=== PATIENT | male | born 1940 | race Caucasian/White ===

== ENCOUNTER 2019-08-23 07:29 | Day surgery (SDC) | payer MEDICARE ==
--- NOTE | 2019-08-22 16:00 | RAD REPORT ---
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 COMPARISON: Chest Single View dated 07/06/2017 FINDINGS: The lungs are clear. The heart is mildly enlarged in size. No displaced fractures. Thoraci c spondylosis noted, mild.
[2019-08-22 16:52] LABS: Absolute Lymphocytes (CBC) 1.3 K/uL (0.7-4.9); Basophils % 0.8 % (0-1.3); Hematocrit 35.4 % (39.6-49.0); Lymphocytes % 19.6 % (15.3-44.8); MPV 8.5 fL (7.6-11.3); RBC Red Blood Cell Count 3.86 M/uL (4.33-5.43)
[2019-08-22 16:53] LABS: Protime INR 1.03
[2019-08-22 16:57] LABS: Potassium 5.1 mmol/L (3.5-5.1)
[2019-08-23] MEDS ORDERED: HEPA 1000U/500MLS 1,000 UNIT/500 ML BAG IV ONE (07:59)
[2019-08-23] MEDS ORDERED: NA CHLORIDE 0.9% 500 ML ONE (08:03)
[2019-08-23] MEDS ORDERED: NA CHLORIDE 0.9% 50 ML ONE (08:38)
[2019-08-23] MEDS ORDERED: ACETYLCYST 20% 4 ML VIAL IH ONE (08:38)
[2019-08-23] MEDS ORDERED: ATROPINE SULF 1 MG/10 ML SYR IV ONE (08:38)
[2019-08-23] MEDS ORDERED: MIDAZOLAM HCL 2 MG/2 ML INJ ONE ×2 (08:38→08:44)
[2019-08-23] MEDS ORDERED: FENTANYL CITR 100 MCG/2 ML ONE (08:38)
[2019-08-23] MEDS ORDERED: PRASUGREL (EFFIENT) 10 MG TAB ONE (09:43)
[2019-08-23] MEDS ORDERED: ASPIRIN 325 MG TAB ONE (09:43)
[2019-08-23] MEDS ORDERED: ZOLPIDEM TARTRATE 5 MG TABLET PO PRN (10:28)
[2019-08-23] MEDS ORDERED: MORPHINE 4 MG/ML SYR IV PRN (10:29)
[2019-08-23] MEDS ORDERED: NITROGLYCERIN 0.4 MG/TAB SL PRN (11:00)
[2019-08-23] MEDS ORDERED: ACETAMINOPHEN 325 MG TABLET PO PRN (11:00)
[2019-08-23] MEDS ORDERED: ACETYLCYST 20% 800 MG/4 ML VIAL PO ONE (12:00)
[2019-08-23] MEDS: NA CHLORIDE 0.9% 1,000 ML IV SCH (12:55)
[2019-08-23 13:16] VITALS: BMI 34.3
[2019-08-23] MEDS: PANTOPRAZOLE 40MG TABLET PO SCH (16:25)
[2019-08-23] MEDS ORDERED: GLUCAGON 1 MG/VIAL IM PRN (17:49)
[2019-08-23] MEDS ORDERED: D50W 25 GM/50 ML SYRINGE/VIAL IV PRN (17:49)
[2019-08-23] MEDS: INSULIN -REGULAR HUMAN 50 UNIT/0.5 ML ML SQ SCH ×2 (18:27→20:07)
--- NOTE | 2019-08-23 20:10 | OP ---
Date of Procedure: 08/23/2019 Surgeon: Manny Li MD [employer]: Katy Lindsay. The patient will remain in the hospital overnight. He received Angiomax. He will receive Effient an d aspirin today. Indications: Mr. Hernandez is a 79-year-old male, patient of Dr. Mateus Chadwick admitted today as an o utpatient for heart catheterization and possible intervention. Indication was abnormal stress test o n 07/14/2019 and chest pain. Description Of Procedure: The patient was prepped and draped in the routine sterile fashion. Given Versed and fentanyl for sedation. A 6-[place] sheath introduced in the right common femoral artery. Angio-Seal was used to close the case. Angiography there was normal. Shannan catheter left and righ t with coronary angiography. He was found to have an 80% mid LAD after the 1st diagonal. The diagon al was small, had an 80% ostial lesion in it. He had a normal circumflex left dominant. He had an 8 0% to 90% obtuse marginal lesion right at the ostium. RCA was small diffusely diseased and nondomina nt. I decided to do staged procedure for now. I went ahead and did a primary stent of the LAD. We used a 2.5 x 20 and a 2.5 x 12 Synergy stent overlapping to obtain 0% residual. There was 0.014 [place]oug ar wire used and XB LAD 3.5 with side hole guide that was used. There were no complications. Blood Loss: 10 mL. Postoperative Diagnosis: Coronary artery disease status post primary stent of the mid LAD, successfu l severe diagonal and obtuse marginal disease. We will treat with medical therapy for now. Anesthesia: Total conscious sedation was 45 minutes. NB/MODL Voice ID: [id number] Report ID: [id number]
[2019-08-23] MEDS ORDERED: ATORVASTATIN 80 MG TAB PO SCH (21:00)
[2019-08-24] VITALS: O2SAT 98
[2019-08-24] MEDS: NA CHLORIDE 0.9% 1,000 ML IV SCH (02:02)
[2019-08-24 04:42] LABS: Absolute Lymphocytes (CBC) 0.7 K/uL (0.7-4.9); Basophils % 0.6 % (0-1.3); Hematocrit 30.9 % (39.6-49.0); Lymphocytes % 10.5 % (15.3-44.8); MPV 7.8 fL (7.6-11.3); RBC Red Blood Cell Count 3.42 M/uL (4.33-5.43)
[2019-08-24 04:57] LABS: Potassium 4.6 mmol/L (3.5-5.1)
[2019-08-24] MEDS: INSULIN -REGULAR HUMAN 50 UNIT/0.5 ML ML SQ SCH (07:30)
[2019-08-24 08:17] VITALS: BP 151/77; TEMP 98
[2019-08-24] MEDS: PANTOPRAZOLE 40MG TABLET PO SCH (08:30)
[2019-08-24] MEDS ORDERED: CLOPIDOGREL 75 MG TABLET PO SCH (09:00)
[2019-08-24] MEDS ORDERED: ASPIRIN 81 MG CHEWABLE TABLET PO SCH (09:00)
--- NOTE | 2019-08-24 12:48 | EKG ---
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
== END 2019-08-24 11:15 | disposition home or self-care (01) ==
LOC: CCL 07:29 → 4TH 09:30 → CCL 08-24 11:15
DX: I25.10 Atherosclerotic heart disease of native coronary artery without angina pectoris (principal); I10 Essential (primary) hypertension; E78.5 Hyperlipidemia, unspecified; E11.9 Type 2 diabetes mellitus without complications; F17.210 Nicotine dependence, cigarettes, uncomplicated; E03.9 Hypothyroidism, unspecified; K21.9 Gastro-esophageal reflux disease without esophagitis; N40.0 Benign prostatic hyperplasia without lower urinary tract symptoms; N18.9 Chronic kidney disease, unspecified; Z79.82 Long term (current) use of aspirin
CPT/HCPCS: 93005; 85025 ×2; 80048 ×2; 36415 ×2; 85610; 80061; 82947 ×6; 85347; 85730; 71046; 93454; C1893; C1760; C1725; C1877; C9600; J2250 ×2; J3010; J0583; J7040; J7030 ×3

== ENCOUNTER 2024-10-08 11:51 | Emergency (ER) | payer MEDICARE, OTHER ==
--- OUTSIDE RECORDS SUMMARY | 2024-10-08 11:55 | XMS REPORT | Continuity of Care Document ---
Author Name Unknown Address [address] [facility] [address] [place] [address] Organization [facility] [place] Address [address] [facility] [address] [place] [address] Care Team Providers Care Manager Staffing Name Role Phone Char Conway Attending Clinician Unavailable Loren Diaz Attending Clinician Unavailable THONY DOMINGUEZ Attending Clinician Unavailable MD MANUELA Attending Clinician Unavail le Payers Payer Name Policy Type Policy Number Effective Date Expirati on Date Source MEDICARE-PART B 5 [id number] 2023 00:00:00 OSMANY BLAKE 5 [id number] 2022 00:00:00 AARP [facility] WELLMED 53 [id number] 2020 00:00:00 [facility] Problems Condition Name Condition Details Condition Category Status Onset Date Resolution Date Last Treatment Date Treating Clinician Comments Source Hypothyroi dism Hypothyroi dism Problem [facility] [id number] 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 Problem [facility] Anemia Anemia Problem [facility] Hyperlipid emia Hyperlipid emia, unspecifie d Problem [facility] Diabetes mellitus without complicati on Diabetes DMII without complicati ons Problem [facility] [id number] Anemia of chronic disease Problem [facility] [id number] Benign prostatic hyperplasi a, unspecifie d whether lower urinary tract symptoms present Problem [facility] [id number] Eosinophil ia Problem [facility] [id number] Thrombocyt openia Problem [facility] [id number] Chronic kidney disease, unspecifie d CKD stage Problem [facility] [id number] Abnormal ankle brachial index (SUNI) Problem [facility] Hypertensi on Hypertensi on Problem [facility] Cervicalgi a Cervicalgi a Problem [facility] Gastro-eso phageal reflux disease without esophagiti s GERD without esophagiti s Problem [facility] [id number] Peripheral edema Problem [facility] [id number] Seasonal allergic rhinitis, unspecifie d trigger Problem [facility] [id number] Paresthesi a Problem [facility] [id number] Former smoker Problem [facility] [id number] Osteopenia , unspecifie d location Problem [facility] [id number] Dysphagia, unspecifie d type Problem [facility] [id number] H/O heart artery stent Problem [facility] [id number] Coronary artery disease involving [place] coronary artery of [place] heart, angina presence unspecifie d Problem [facility] 266685249 Left atrial dilatation Problem [facility] Chronic kidney disease stage 3A Stage 3a chronic kidney disease Problem [facility] Obese Obese Problem [facility] [id number] Stage 3b chronic kidney disease Problem [facility] [id number] 107 Coronary artery disease involving [place] coronary artery of [place] heart without angina pectoris Problem [facility] [id number] +5th digit eff 04/26/20*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 Problem [facility] 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 Problem [facility] [id number] Body mass index [BMI] 32.0-32.9, adult Problem [facility] Social History Social Habit Start Date Stop Date Quantity Comments Source Gender identity Nadine elizabeth Mason - External Sexual orientation Ninfa christopher Mason - External History of tobacco use Cigarette Smoker Isha Arilea camargo - External Cigarettes smoked current (pack per day) - Reported 2023-02-23 00:00:00 2023-02-23 00:00:00 Isha Mason - External Cigarette pack-years 2023-02-23 00:00:00 2023-02-23 00:00:00 Isha Mason - External History of Social function 2023-02-23 00:00:00 2023-02-23 00:00:00 Isha Mason - External Sex Assigned At 1940 00:00:00 1940 00:00:00 Isha Mason - External Smoking Status Start Date Stop Date Source Unknown if ever smoked [facility] Ex-smoker 2023-02-23 00:00:00 2023-02-23 00:00:00 Ninfa fubrice Mason - External Medications Ordered Medication Name Filled Medication Name Start Date Stop Date Current Medication? Ordering Clinician Indication Dosage Frequency Signature (SIG) Comments Components Source Omeprazole 40 MG Omeprazole 40 MG 09-07 00:00: 00 No QD Omeprazole 40 MG Dapaglifloz in Propanediol (Farxiga) 5 MG oral Tablet 02-23 16:09: 14 Yes [id number] 1{tbl} Take 1 tablet by mouth daily Isha calvillo Lisinopril 20 MG oral Tablet 02-23 16:09: 14 Yes [id number] 20mg Take 1 tablet (20 mg total) by mouth daily 1/2 tab daily Isha calvillo Doxazosin Mesylate 8 MG oral Tablet 02-23 16:09: 14 Yes [id number] 8mg Take 1 tablet (8 mg total) by mouth 2 times daily 1/2 tab twice a day Isha calvillo Tamsulosin HCl 0.4 MG oral Capsule 02-23 16:09: 14 Yes [id number] .4mg Take 1 capsule (0.4 mg total) by mouth every night at bedtime Isha calvillo Furosemide (LASIX) 20 MG oral Tablet 02-23 16:09: 14 Yes [id number] 20mg Take 1 tablet (20 mg total) by mouth daily 3 times a day. Isha calvillo Metoprolol Tartrate (FIRST - METOPROLOL OR) 02-23 16:09: 14 Yes [id number] 1{tbl} Take 1 tablet by mouth 2 times daily 25 mg. Twice a day Isha calvillo Misc Natural Products (Turmeric Curcumin) oral Capsule 02-23 16:09: 14 Yes [id number] 1{capsu le} Take 1 capsule by mouth daily Isha calvillo Insulin Lispro Prot & Lispro (HUMALOG MIX 75/25 KWIKPEN SC) 02-23 16:09: 14 Yes [id number] 42U Inject 42 units into the skin daily (with breakfast) 32 units in evening. Isha calvillo Atorvastati n Calcium 40 MG oral Tablet 02-23 16:09: 14 Yes [id number] 40mg Take 1 tablet (40 mg total) by mouth daily 1/2 tab nightly Isha calvillo [place]-3 Fatty Acids (Fish Oil) 1000 MG oral Capsule 02-23 16:09: 14 Yes [id number] 1000mg Take 1 capsule (1,000 mg total) by mouth daily Isha calvillo Ferrous Sulfate (Iron) 325 (65 Fe) MG oral Tablet 02-23 16:09: 14 Yes [id number] 325mg Take 1 tablet (325 mg total) by mouth daily (with breakfast) 1/2 tab daily Isha calvlilo Cholecalcif tera (Vitamin D3) 50 MCG (2000 UT) oral Capsule 02-23 16:09: 14 Yes [id number] 2000U Take 1 capsule (2,000 units total) by mouth daily 3 times a week. Isha calvillo Levothyroxi ne Sodium 100 MCG oral Tablet 02-23 16:09: 14 Yes [id number] 100ug Take 1 tablet (100 mcg total) by mouth daily Isha calvillo Glucagon, rDNA, (Glucagon Emergency) 1 MG injection Kit 02-23 00:00: 00 Yes [id number] Use as directed Isha calvillo Insulin Pen Needle 31G X 5 MM does not apply [facility] [place] 00:00: 00 Yes [id number] Takes insulin SQ daily Isha calvillo Continuous Blood Gluc Sensor (FreeStyle Antonieta 2 Sensor) does not apply [facility] [place]-23 00:00: 00 Yes [id number] Changes sensor every 14 days Isha calvillo Dapaglifloz in Propanediol (Farxiga) 5 MG oral Tablet 02-23 00:00: 00 Yes [id number] 1 tablet po Q daily Isha calvillo Levothyroxi ne Sodium 100 MCG oral Tablet 02-23 00:00: 00 Yes [id number] 100ug Take 1 tablet (100 mcg total) by mouth daily Isha calvillo Kenalog (Triamcinol one) Kenalog (Triamcinol one) 2020-07 00:00: 00 No 40mg [facility] Metoprolol Tartrate 25 mg Metoprolol Tartrate 25 mg No 1{table t} BID Metoprolol Tartrate 25 mg Furosemide 20 MG Furosemide 20 MG No 1{table t} Furosemide 20 MG Atorvastati n Calcium 40 MG Atorvastati n Calcium 40 MG No 1{table t} QD Atorvastat in Calcium 40 MG Fish Oil 1000 MG Fish Oil 1000 MG No 1{capsu le} QD Fish Oil 1000 MG Lisinopril 20 mg Lisinopril 20 mg No 1{table t} QD Lisinopril 20 mg Doxazosin Mesylate 8 MG Doxazosin Mesylate 8 MG No 1{table t} QD Doxazosin Mesylate 8 MG Iron 325 (65 Fe) MG Iron 325 (65 Fe) MG No 1{table t} QD Iron 325 (65 Fe) MG Cinnamon Plus Chromium 50-500 MCG-MG Cinnamon Plus Chromium 50-500 MCG-MG No Cinnamon Plus Chromium 50-500 MCG-MG Vitamin D3 1000 UNIT Vitamin D3 1000 UNIT No 1{capsu le} Vitamin D3 1000 UNIT Levothyroxi ne Sodium 88 MCG Levothyroxi ne Sodium 88 MCG No QD Levothyrox ine Sodium 88 MCG [place] 100-33 UNT-MCG/ML [place] 100-33 UNT-MCG/ML No [place] 100-33 UNT-MCG/ML Aspirin 81 81 MG Aspirin 81 81 MG No 1{table t} QD Aspirin 81 81 MG Vital Signs Vital Name Observation Time Observation Value Comments S praful height 2024-09-07 11:00:00 67.5 [in_i] Comm [facility] weight 2024-09-07 11:00:00 213.8 [lb_av] Co [facility] temperature 2024-09-07 11:00:00 97.9 [degF] Com [facility] bmi 2024-09-07 11:00:00 32.99 kg/m2 [facility] oximetry 2024-09-07 11:00:00 98 % [facility] respiratory rate 2024-09-07 11:00:00 16 /min [facility] blood pressure systolic 2024-09-07 11:00:00 100 mm[Hg] [facility] blood pressure diastolic 2024-09-07 11:00:00 62 mm[Hg] [facility] height 2024-09-07 11:00:00 67.5 [in_i] [facility] weight 2024-09-07 11:00:00 213.8 [lb_av] [facility] temperature 2024-09-07 11:00:00 97.9 [degF] Com [facility] bmi 2024-09-07 11:00:00 32.99 kg/m2 [facility] oximetry 2024-09-07 11:00:00 98 % [facility] respiratory rate 2024-09-07 11:00:00 16 /min [facility] blood pressure systolic 2024-09-07 11:00:00 100 mm[Hg[facility] blood pressure diastolic 2024-09-07 11:00:00 62 mm[Hg] [facility] height 2024-06-07 11:40:00 67.5 [in_i] Comm [facility] weight 2024-06-07 11:40:00 210 [lb_av] Comm [facility] bmi 2024-06-07 11:40:00 32.4 kg/m2 [facility] height 2024-03-03 11:00:00 67.5 [in_i] [facility] weight 2024-03-03 11:00:00 210 [lb_av] Comm [facility] bmi 2024-03-03 11:00:00 32.4 kg/m2 [facility] height 2024-03-03 11:00:00 67.5 [in_i] [facility] weight 2024-03-03 11:00:00 210 [lb_av] [facility] bmi 2024-03-03 11:00:00 32.4 kg/m2 [facility] height 2023-12-01 10:20:00 67.5 [in_i] [facility] weight 2023-12-01 10:20:00 210.2 [lb_av] Co [facility] temperature 2023-12-01 10:20:00 97.2 [degF] Com [facility] bmi 2023-12-01 10:20:00 32.43 kg/m2 [facility] oximetry 2023-12-01 10:20:00 99 % [facility] respiratory rate 2023-12-01 10:20:00 16 /min [facility] blood pressure systolic 2023-12-01 10:20:00 128 mm[Hg] [facility] blood pressure diastolic 2023-12-01 10:20:00 64 mm[Hg] [facility] height 2023-09-02 11:20:00 67.5 [in_i] [facility] weight 2023-09-02 11:20:00 215.0 [lb_av] [facility] temperature 2023-09-02 11:20:00 98.0 [degF] Com [facility] bmi 2023-09-02 11:20:00 33.17 kg/m2 [facility] oximetry 2023-09-02 11:20:00 99 % [facility] respiratory rate 2023-09-02 11:20:00 16 /min [facility] blood pressure systolic 2023-09-02 11:20:00 115 mm[Hg] [facility] blood pressure diastolic 2023-09-02 11:20:00 53 mm[Hg] [facility] height 2023-09-02 10:20:00 67.5 [in_i] [facility] weight 2023-09-02 10:20:00 215.0 [lb_av] [facility] temperature 2023-09-02 10:20:00 98.0 [degF] Com [facility] bmi 2023-09-02 10:20:00 33.17 kg/m2 [facility] oximetry 2023-09-02 10:20:00 99 % [facility] respiratory rate 2023-09-02 10:20:00 16 /min [facility] blood pressure systolic 2023-09-02 10:20:00 115 mm[Hg] [facility] blood pressure diastolic 2023-09-02 10:20:00 53 mm[Hg] Common [facility] height 2023-05-20 10:00:00 67.5 [in_i] Comm [facility] weight 2023-05-20 10:00:00 219 [lb_av] Comm [facility] temperature 2023-05-20 10:00:00 97.4 [degF] Com [facility] bmi 2023-05-20 10:00:00 33.79 kg/m2 [facility] oximetry 2023-05-20 10:00:00 98 % [facility] respiratory rate 2023-05-20 10:00:00 16 /min [facility] blood pressure systolic 2023-05-20 10:00:00 128 mm[Hg] [facility] blood pressure diastolic 2023-05-20 10:00:00 51 mm[Hg] [facility] height 2023-05-20 10:40:00 67.5 [in_i] [facility] weight 2023-05-20 10:40:00 219 [lb_av] [facility] temperature 2023-05-20 10:40:00 97.4 [degF] Com [facility] bmi 2023-05-20 10:40:00 33.79 kg/m2 [facility] oximetry 2023-05-20 10:40:00 98 % [facility] respiratory rate 2023-05-20 10:40:00 16 /min [facility] blood pressure systolic 2023-05-20 10:40:00 128 mm[Hg] Common [facility] blood pressure diastolic 2023-05-20 10:40:00 51 mm[Hg] [facility] Systolic blood pressure 2023-02-23 20:44:00 123 mm[Hg] Isha Ta ld - External Diastolic blood pressure 2023-02-23 20:44:00 77 mm[Hg] Isha Ta ld - External Heart rate 2023-02-23 20:44:00 50 /min Pawel Mason - External Respiratory rate 2023-02-23 20:37:00 16 /min Isah Maosn - External Body height 2023-02-23 20:37:00 175.3 cm Nadine johnosn Seybold - External Body weight 2023-02-23 20:37:00 100.699 kg Nadine ey Seybold - External BMI 2023-02-23 20:37:00 32.78 kg/m2 Nadine johnson Seybold - External height 2023-01-12 13:00:00 67.5 [in_i] [facility] weight 2023-01-12 13:00:00 224.4 [lb_av] [facility] temperature 2023-01-12 13:00:00 97.8 [degF] Com [facility] bmi 2023-01-12 13:00:00 34.62 kg/m2 Comm [facility] oximetry 2023-01-12 13:00:00 97 % [facility] respiratory rate 2023-01-12 13:00:00 16 /min [facility] blood pressure systolic 2023-01-12 13:00:00 128 mm[Hg] [facility] blood pressure diastolic 2023-01-12 13:00:00 53 mm[Hg] [facility] height 2022-11-25 14:40:00 67.5 [in_i] [facility] weight 2022-11-25 14:40:00 221.0 [lb_av] [facility] temperature 2022-11-25 14:40:00 98.1 [degF] Com [facility] bmi 2022-11-25 14:40:00 34.1 kg/m2 [facility] oximetry 2022-11-25 14:40:00 97 % [facility] respiratory rate 2022-11-25 14:40:00 16 /min [facility] blood pressure systolic 2022-11-25 14:40:00 137 mm[Hg] [facility] blood pressure diastolic 2022-11-25 14:40:00 64 mm[Hg] [facility] height 2022-05-13 10:00:00 67.5 [in_i] [facility] weight 2022-05-13 10:00:00 219.0 [lb_av] Co [facility] temperature 2022-05-13 10:00:00 97.2 [degF] Com [facility] bmi 2022-05-13 10:00:00 33.79 kg/m2 [facility] oximetry 2022-05-13 10:00:00 99 % [facility] respiratory rate 2022-05-13 10:00:00 15 /min [facility] blood pressure systolic 2022-05-13 10:00:00 113 mm[Hg] [facility] blood pressure diastolic 2022-05-13 10:00:00 54 mm[Hg] [facility] height 2022-02-06 11:40:00 67.5 [in_i] [facility] weight 2022-02-06 11:40:00 218 [lb_av] [facility] temperature 2022-02-06 11:40:00 97.5 [degF] Com [facility] bmi 2022-02-06 11:40:00 33.64 kg/m2 Comm [facility] oximetry 2022-02-06 11:40:00 98 % [facility] respiratory rate 2022-02-06 11:40:00 16 /min [facility] blood pressure systolic 2022-02-06 11:40:00 115 mm[Hg] [facility] blood pressure diastolic 2022-02-06 11:40:00 56 mm[Hg] [facility] Procedures Procedure Date / Time Performed Performing Clinicia n Source REAGENT STRIP/BLOOD GLUCOSE 2023-02-23 20:47:00 Thony Dominguez Seybold - External Encounters Start Date/Time End Date/Time Encounter Type Admission Type Attending Clinicians Care Facility Care Department Encounter ID Source 2024-08-22 15:22:00 Outpatient Char Conway [facility] [id number] [facility] 2024-01-18 15:56:00 Outpatient Char Conway STLMLC STLC [id number] [facility] 2022-10-09 10:35:01 Outpatient ConwayChar blanco [facility] [id number] [facility] 2022-09-04 09:38:01 Outpatient Char Conway [facility] [id number] [facility] 2022-05-09 07:50:01 Outpatient Loren Diaz [facility] [id number] [facility] 2022-02-06 11:23:02 Outpatient Joe Na [facility] [id number] [facility] 2024-09-07 00:00:00 2024-09-07 00:00:00 OFFICE VISIT ESTAB [facility] [id number] [facility] 2024-09-07 00:00:00 2024-09-07 00:00:00 SUB ANNUAL [facility] [id number] [facility] 2024-08-26 00:00:00 2024-08-26 00:00:00 (TEL) STLC STLC [id number] [facility] 2024-08-22 00:00:00 2024-08-22 00:00:00 (TEL) STLMLC STLMLC [id number] [facility] 2024-06-24 00:00:00 2024-06-24 00:00:00 (TEL) STLMLC STLMLC [id number] [facility] 2024-06-15 00:00:00 2024-06-15 00:00:00 (TEL) STLMLC STLMLC [id number] [facility] 2024-06-07 00:00:00 2024-06-07 00:00:00 OFFICE VISIT ESTAB PT LEVEL 4 STLMLC STLMLC [id number] [facility] 2024-04-20 00:00:00 2024-04-20 00:00:00 (TEL) STLMLC STLMLC [id number] [facility] 2024-03-09 00:00:00 2024-03-09 00:00:00 Outpatient THONY DOMINGUEZ [id number] Isha Mason 2024-03-03 00:00:00 2024-03-03 00:00:00 OFFICE VISIT ESTAB PT LEVEL 4 STLMLC STLC [id number] [facility] 2024-01-18 00:00:00 2024-01-18 00:00:00 Outpatient [facility] [id number] [facility]01 00:00:00 2023-12-01 00:00:00 OFFICE VISIT ESTAB PT LEVEL 4 STLMLC STLC [id number] [facility] 2023-09-02 00:00:00 2023-09-02 00:00:00 OFFICE VISIT ESTAB PT LEVEL 4 STLMLC STLMLC [id number] [facility] 2023-09-02 00:00:00 2023-09-02 00:00:00 SUB ANNUAL [facility] VISIT STLMLC STLMLC [id number] [facility] 2023-08-24 08:45:00 2023-08-24 08:45:00 Outpatient THONY DOMINGUEZ [id number] Isha [facility] 2023-08-10 00:00:00 2023-08-10 00:00:00 Outpatient THONY DOMINGUEZ ISHA SCHMITT [id number] Isha [facility] 2023-07-29 00:00:00 2023-07-29 00:00:00 Outpatient THONY DOMINGUEZ [id number] [facility] 2023-07-09 00:00:00 2023-07-09 00:00:00 Outpatient MD ISHA STUBBS [id number] [facility] 2023-07-02 00:00:00 2023-07-02 00:00:00 Outpatient MD ISHA STUBBS [id number] [facility] 2023-07-01 00:00:00 2023-07-01 00:00:00 (TEL) STLMLC STLMLC [id number] [facility] 2023-06-29 13:30:00 2023-06-29 13:30:00 Outpatient THONY DOMINGUEZ ISHA SCHMITT [id number] [facility] 2023-06-23 00:00:00 2023-06-23 00:00:00 (TEL) STLMLC STLMLC [id number] [facility] 2023-06-08 00:00:00 2023-06-08 00:00:00 (TEL) STLMLC STLMLC [id number] [facility] 2023-05-20 00:00:00 2023-05-20 00:00:00 SUB ANNUAL [facility] VISIT STLMLC STLMLC [id number] [facility] 2023-05-20 00:00:00 2023-05-20 00:00:00 OFFICE VISIT ESTAB PT LEVEL 4 STLMLC STLMLC [id number] [facility] 2023-04-02 00:00:00 2023-04-02 00:00:00 (TEL) STLMLC STLMLC [id number] [facility] 2023-03-17 00:00:00 2023-03-17 00:00:00 (TEL) STLMLC STLMLC [id number] [facility] 2023-03-11 00:00:00 2023-03-11 00:00:00 Outpatient THONY DOMINGUEZ [id number] Isha Mason 2023-02-23 15:30:00 2023-02-23 15:30:00 Outpatient THONY DOMINGUEZ [id number] Isha [facility] jo 2023-01-12 00:00:00 2023-01-12 00:00:00 OFFICE VISIT ESTAB PT LEVEL 4 STLMLC STLMLC [id number] [facility] 2022-12-10 00:00:00 2022-12-10 00:00:00 (TEL) STLMLC STLMLC [id number] [facility] 2022-11-25 00:00:00 2022-11-25 00:00:00 OFFICE VISIT ESTAB PT LEVEL 4 STLMLC STLMLC [id number] [facility] 2022-11-10 00:00:00 2022-11-10 00:00:00 (TEL) STLMLC STLMLC [id number] [facility] 2022-10-27 00:00:00 2022-10-27 00:00:00 (TEL) STLMLC STLMLC [id number] [facility] 2022-10-22 00:00:00 2022-10-22 00:00:00 (TEL) STLMLC STLMLC [id number] [facility] 2022-10-22 00:00:00 2022-10-22 00:00:00 (TEL) STLMLC STLMLC [id number] [facility] 2022-10-14 00:00:00 2022-10-14 00:00:00 (TEL) STLMLC STLMLC [id number] [facility] 2022-10-09 00:00:00 2022-10-09 00:00:00 (TEL) STLMLC STLMLC [id number] [facility] 2022-09-09 00:00:00 2022-09-09 00:00:00 (TEL) STLMLC STLMLC [id number] [facility] 2022-09-04 00:00:00 2022-09-04 00:00:00 (TEL) STLMLC STLMLC [id number] [facility] 2022-05-13 00:00:00 2022-05-13 00:00:00 OFFICE VISIT ESTAB PT LEVEL 4 STLMLC STLMLC [id number] [facility] 2022-02-06 00:00:00 2022-02-06 00:00:00 OFFICE VISIT ESTAB PT LEVEL 4 STLMLC STLMLC [id number] [facility] Results Test Description Test Time Test Comments Results Result Co mments Source COMPREHENSIVE METABOLIC [id number] 00:00:00* Test Item Value Reference Range Interpretation Comme nts ALBUMIN, URINE, RANDOM (test code = 77152-5) <0.2 MG/DL NOT ESTAB MG/DL CALC ALBUMIN/CREAT, RND (test code = 84404-1) <9 MG/G See_Comment [Automated [employer] ge] The system which generated this result transmitted reference range: <30 MG/G. The reference range was not used to interpret this result as normal/abnormal. CREATININE, URINE, CONC. (test code = 2161-8) 22.6 MG/DL NOT ESTAB MG/DL NUCLEATED RBCS (test code = 72181-8) 0.0 /100 WBC'S See_Comment [Automated message] The system which generated this result transmitted reference range: 0.0 /100 WBC'S. The reference range was not used to interpret this result as normal/abnormal. ABSOLUTE EOSINOPHILS (test code = 41531-3) 0.38 K/UL See_Comment [Automated message] The system which generated this result transmitted reference range: 0.00-0.50 K/UL. The reference range was not used to interpret this result as normal/abnormal. ABSOLUTE LYMPHOCYTES (test code = 95224-3) 1.17 K/UL See_Comment [Automated message] The system which generated this result transmitted reference range: 1.00-4.00 K/UL. The reference range was not used to interpret this result as normal/abnormal. ABSOLUTE MONOCYTES (test code = 63727-1) 0.50 K/UL See_Comment [Automated message] The system which generated this result transmitted reference range: 0.20-1.00 K/UL. The reference range was not used to interpret this result as normal/abnormal. ABSOLUTE NEUTROPHILS (test code = 56612-1) 4.11 K/UL See_Comment [Automated message] The system which generated this result transmitted reference range: 1.50-7.50 K/UL. The reference range was not used to interpret this result as normal/abnormal. BASOPHILS (test code = 24332-9) 0.6 % EOSINOPHILS (test code = 19974-8) 6.1 % HEMATOCRIT (test code = 00996-6) 35.1 % See_Comment L [Automated messa ge] The system which generated this result transmitted reference range: 40.0-51.0 %. The reference range was not used to interpret this result as normal/abnormal. HEMOGLOBIN (test code = 718-7) 11.5 G/DL See_Comment L [Automated messa ge] The system which generated this result transmitted reference range: 13.5-17.0 G/DL. The reference range was not used to interpret this result as normal/abnormal. LYMPHOCYTES (test code = 05104-4) 18.8 % MCH (test code = 84695-8) 31.4 PG See_Comment [Automated messa ge] The system which generated this result transmitted reference range: 25.0-33.0 PG. The reference range was not used to interpret this result as normal/abnormal. MCHC (test code = 37301-6) 32.8 G/DL See_Comment [Automated messa ge] The system which generated this result transmitted reference range: 31.0-36.0 G/DL. The reference range was not used to interpret this result as normal/abnormal. MCV (test code = 73789-6) 95.9 fL See_Comment [Automated messa ge] The system which generated this result transmitted reference range: 80.0-99.0 fL. The reference range was not used to interpret this result as normal/abnormal. MONOCYTES (test code = 24653-4) 8.1 % NEUTROPHILS (test code = 64799-9) 66.2 % PLATELET COUNT (test code = 02682-6) 163 K/UL See_Comment [Automated messa ge] The system which generated this result transmitted reference range: 130-400 K/UL. The reference range was not used to interpret this result as normal/abnormal. RBC (test code = 17950-3) 3.66 M/UL See_Comment L [Automated messa ge] The system which generated this result transmitted reference range: 4.50-6.10 M/UL. The reference range was not used to interpret this result as normal/abnormal. RDW (test code = 34506-2) 12.3 % See_Comment [Automated [employer] ge] The system which generated this result transmitted reference range: 11.5-15.0 %. The reference range was not used to interpret this result as normal/abnormal. WBC (test code = 17070-5) 6.2 K/UL See_Comment [Automated [employer] ge] The system which generated this result transmitted reference range: 3.5-11.0 K/UL. The reference range was not used to interpret this result as normal/abnormal. HEMOGLOBIN A1c (test code = 4548-4) 7.3 % See_Comment H [Automated [employer] ge] The system which generated this result transmitted reference range: 4.2-5.6 %. The reference range was not used to interpret this result as normal/abnormal. CALC LDL CHOL (test code = 09106-5) 88 MG/DL See_Comment [Automated [employer] ge] The system which generated this result transmitted reference range: <100 MG/DL. The reference range was not used to interpret this result as normal/abnormal. CHOLESTEROL (test code = 2093-3) 156 MG/DL See_Comment [Automated [employer] ge] The system which generated this result transmitted reference range: <200 MG/DL. The reference range was not used to interpret this result as normal/abnormal. HDL CHOLESTEROL (test code = 2085-9) 50 MG/DL See_Comment [Automated [employer] ge] The system which generated this result transmitted reference range: >39 MG/DL. The reference range was not used to interpret this result as normal/abnormal. RISK RATIO LDL/HDL (test code = 34335-9) 1.76 RATIO See_Comment [Automated message] The system which generated this result transmitted reference range: <3.55 RATIO. The reference range was not used to interpret this result as normal/abnormal. TRIGLYCERIDES (test code = 2571-8) 85 MG/DL See_Comment [Automated messa ge] The system which generated this result transmitted reference range: <150 MG/DL. The reference range was not used to interpret this result as normal/abnormal. FREE T4 (THYROXINE) (test code = 3024-7) 1.66 NG/DL See_Comment [Automated message] The system which generated this result transmitted reference range: 0.80-1.90 NG/DL. The reference range was not used to interpret this result as normal/abnormal. TSH, THIRD GENERATION (test code = 58138-7) 0.799 UIU/ML See_Comment [Automated message] The system which generated this result transmitted reference range: 0.400-4.100 UIU/ML. The reference range was not used to interpret this result as normal/abnormal. ALBUMIN (test code = 1751-7) 3.7 G/DL See_Comment [Automated messa ge] The system which generated this result transmitted reference range: 3.5-5.2 G/DL. The reference range was not used to interpret this result as normal/abnormal. ALKALINE PHOSPHATASE (test code = 6768-6) 69 U/L See_Comment [Automated message] The system which generated this result transmitted reference range: 40-125 U/L. The reference range was not used to interpret this result as normal/abnormal. BILIRUBIN, TOTAL (test code = 1975-2) 0.4 MG/DL See_Comment [Automated messa ge] The system which generated this result transmitted reference range: <=1.2 MG/DL. The reference range was not used to interpret this result as normal/abnormal. BUN (test code = 3094-0) 29 MG/DL See_Comment H [Automated messa ge] The system which generated this result transmitted reference range: 8-23 MG/DL. The reference range was not used to interpret this result as normal/abnormal. CALCIUM (test code = 38764-4) 9.3 MG/DL See_Comment [Automated [employer] ge] The system which generated this result transmitted reference range: 8.5-10.5 MG/DL. The reference range was not used to interpret this result as normal/abnormal. CALC A/G RATIO (test code = 1759-0) 1.3 RATIO See_Comment [Automated messa ge] The system which generated this result transmitted reference range: 1.0-2.6 RATIO. The reference range was not used to interpret this result as normal/abnormal. CALC BUN/CREAT (test code = 3097-3) 17 RATIO See_Comment [Automated messa ge] The system which generated this result transmitted reference range: 6-28 RATIO. The reference range was not used to interpret this result as normal/abnormal. CALC GLOBULIN (test code = 37440-1) 2.8 G/DL See_Comment [Automated messa ge] The system which generated this result transmitted reference range: 1.9-3.7 G/DL. The reference range was not used to interpret this result as normal/abnormal. CARBON DIOXIDE (test code = 1963-8) 22 MEQ/L See_Comment [Automated messa ge] The system which generated this result transmitted reference range: 19-31 MEQ/L. The reference range was not used to interpret this result as normal/abnormal. CHLORIDE (test code = 2075-0) 105 MEQ/L See_Comment [Automated messa ge] The system which generated this result transmitted reference range: 95-107 MEQ/L. The reference range was not used to interpret this result as normal/abnormal. CREATININE (test code = 2160-0) 1.70 MG/DL See_Comment H [Automated messa ge] The system which generated this result transmitted reference range: 0.80-1.40 MG/DL. The reference range was not used to interpret this result as normal/abnormal. eGFR (2020 CKD-EPI) (test code = 31426-8) 40 ML/MIN/1.73 See_Comment L [Automated message] The system which generated this result transmitted reference range: >60 ML/MIN/1.73. The reference range was not used to interpret this result as normal/abnormal. GLUCOSE (test code = 1558-6) 135 MG/DL See_Comment H [Automated messa ge] The system which generated this result transmitted reference range: 70-99 MG/DL. The reference range was not used to interpret this result as normal/abnormal. POTASSIUM (test code = 2823-3) 5.0 MEQ/L See_Comment [Automated messa ge] The system which generated this result transmitted reference range: 3.5-5.4 MEQ/L. The reference range was not used to interpret this result as normal/abnormal. PROTEIN, TOTAL (test code = 2885-2) 6.5 G/DL See_Comment [Automated messa ge] The system which generated this result transmitted reference range: 6.1-8.3 G/DL. The reference range was not used to interpret this result as normal/abnormal. AST (test code = 1920-8) 20 U/L See_Comment [Automated messa ge] The system which generated this result transmitted reference range: 9-50 U/L. The reference range was not used to interpret this result as normal/abnormal. ALT (test code = 1742-6) 22 U/L See_Comment [Automated messa ge] The system which generated this result transmitted reference range: 5-50 U/L. The reference range was not used to interpret this result as normal/abnormal. SODIUM (test code = 2951-2) 139 MEQ/L See_Comment [Automated messa ge] The system which generated this result transmitted reference range: 133-146 MEQ/L. The reference range was not used to interpret this result as normal/abnormal. CBC W/AUTO [id number] 00:00:00* Test Item Value Reference Range Interpretation Comme nts NUCLEATED RBCS (test code = 90888-0) 0.0 /100 WBC'S See_Comment [Automated messa ge] The system which generated this result transmitted reference range: 0.0 /100 WBC'S. The reference range was not used to interpret this result as normal/abnormal. ABSOLUTE EOSINOPHILS (test code = 93006-0) 0.34 K/UL See_Comment [Automated messa ge] The system which generated this result transmitted reference range: 0.00-0.50 K/UL. The reference range was not used to interpret this result as normal/abnormal. ABSOLUTE LYMPHOCYTES (test code = 30583-8) 1.24 K/UL See_Comment [Automated messa ge] The system which generated this result transmitted reference range: 1.00-4.00 K/UL. The reference range was not used to interpret this result as normal/abnormal. ABSOLUTE MONOCYTES (test code = 47771-3) 0.51 K/UL See_Comment [Automated messa ge] The system which generated this result transmitted reference range: 0.20-1.00 K/UL. The reference range was not used to interpret this result as normal/abnormal. ABSOLUTE NEUTROPHILS (test code = 49910-8) 4.04 K/UL See_Comment [Automated messa ge] The system which generated this result transmitted reference range: 1.50-7.50 K/UL. The reference range was not used to interpret this result as normal/abnormal. BASOPHILS (test code = 54018-3) 0.3 % EOSINOPHILS (test code = 96337-8) 5.5 % HEMATOCRIT (test code = 05880-9) 35.9 % See_Comment L [Automated messa ge] The system which generated this result transmitted reference range: 40.0-51.0 %. The reference range was not used to interpret this result as normal/abnormal. HEMOGLOBIN (test code = 718-7) 11.7 G/DL See_Comment L [Automated messa ge] The system which generated this result transmitted reference range: 13.5-17.0 G/DL. The reference range was not used to interpret this result as normal/abnormal. LYMPHOCYTES (test code = 87555-4) 20.1 % MCH (test code = 90159-9) 30.8 PG See_Comment [Automated messa ge] The system which generated this result transmitted reference range: 25.0-33.0 PG. The reference range was not used to interpret this result as normal/abnormal. MCHC (test code = 07548-0) 32.6 G/DL See_Comment [Automated messa ge] The system which generated this result transmitted reference range: 31.0-36.0 G/DL. The reference range was not used to interpret this result as normal/abnormal. MCV (test code = 12675-3) 94.5 fL See_Comment [Automated messa ge] The system which generated this result transmitted reference range: 80.0-99.0 fL. The reference range was not used to interpret this result as normal/abnormal. MONOCYTES (test code = 89658-4) 8.3 % NEUTROPHILS (test code = 21729-5) 65.6 % PLATELET COUNT (test code = 03456-1) 215 K/UL See_Comment [Automated messa ge] The system which generated this result transmitted reference range: 130-400 K/UL. The reference range was not used to interpret this result as normal/abnormal. RBC (test code = 53660-3) 3.80 M/UL See_Comment L [Automated messa ge] The system which generated this result transmitted reference range: 4.50-6.10 M/UL. The reference range was not used to interpret this result as normal/abnormal. RDW (test code = 32427-0) 12.0 % See_Comment [Automated messa ge] The system which generated this result transmitted reference range: 11.5-15.0 %. The reference range was not used to interpret this result as normal/abnormal. WBC (test code = 80683-7) 6.2 K/UL See_Comment [Automated messa ge] The system which generated this result transmitted reference range: 3.5-11.0 K/UL. The reference range was not used to interpret this result as normal/abnormal. CBC W/AUTO [id number] 00:00:00* Test Item Value Reference Range Interpretation Comme nts NUCLEATED RBCS (test code = 18786-8) 0.0 /100 WBC'S See_Comment [Automated messa ge] The system which generated this result transmitted reference range: 0.0 /100 WBC'S. The reference range was not used to interpret this result as normal/abnormal. ABSOLUTE EOSINOPHILS (test code = 95044-5) 0.55 K/UL See_Comment H [Automated messa ge] The system which generated this result transmitted reference range: 0.00-0.50 K/UL. The reference range was not used to interpret this result as normal/abnormal. ABSOLUTE LYMPHOCYTES (test code = 79692-9) 1.59 K/UL See_Comment [Automated messa ge] The system which generated this result transmitted reference range: 1.00-4.00 K/UL. The reference range was not used to interpret this result as normal/abnormal. ABSOLUTE MONOCYTES (test code = 06731-1) 0.52 K/UL See_Comment [Automated messa ge] The system which generated this result transmitted reference range: 0.20-1.00 K/UL. The reference range was not used to interpret this result as normal/abnormal. ABSOLUTE NEUTROPHILS (test code = 44618-2) 3.24 K/UL See_Comment [Automated messa ge] The system which generated this result transmitted reference range: 1.50-7.50 K/UL. The reference range was not used to interpret this result as normal/abnormal. BASOPHILS (test code = 58124-2) 0.7 % EOSINOPHILS (test code = 43706-5) 9.2 % HEMATOCRIT (test code = 95803-8) 33.2 % See_Comment L [Automated messa ge] The system which generated this result transmitted reference range: 40.0-51.0 %. The reference range was not used to interpret this result as normal/abnormal. HEMOGLOBIN (test code = 718-7) 10.8 G/DL See_Comment L [Automated messa ge] The system which generated this result transmitted reference range: 13.5-17.0 G/DL. The reference range was not used to interpret this result as normal/abnormal. LYMPHOCYTES (test code = 83479-5) 26.7 % MCH (test code = 09530-0) 29.7 PG See_Comment [Automated messa ge] The system which generated this result transmitted reference range: 25.0-33.0 PG. The reference range was not used to interpret this result as normal/abnormal. MCHC (test code = 11508-5) 32.5 G/DL See_Comment [Automated messa ge] The system which generated this result transmitted reference range: 31.0-36.0 G/DL. The reference range was not used to interpret this result as normal/abnormal. MCV (test code = 36518-6) 91.2 fL See_Comment [Automated messa ge] The system which generated this result transmitted reference range: 80.0-99.0 fL. The reference range was not used to interpret this result as normal/abnormal. MONOCYTES (test code = 86443-9) 8.7 % NEUTROPHILS (test code = 18265-5) 54.4 % PLATELET COUNT (test code = 32804-1) 202 K/UL See_Comment [Automated messa ge] The system which generated this result transmitted reference range: 130-400 K/UL. The reference range was not used to interpret this result as normal/abnormal. RBC (test code = 26148-0) 3.64 M/UL See_Comment L [Automated messa ge] The system which generated this result transmitted reference range: 4.50-6.10 M/UL. The reference range was not used to interpret this result as normal/abnormal. RDW (test code = 68536-9) 11.8 % See_Comment [Automated messa ge] The system which generated this result transmitted reference range: 11.5-15.0 %. The reference range was not used to interpret this result as normal/abnormal. WBC (test code = 15160-7) 6.0 K/UL See_Comment [Automated messa ge] The system which generated this result transmitted reference range: 3.5-11.0 K/UL. The reference range was not used to interpret this result as normal/abnormal. REAGENT STRIP/BLOOD [id number] 20:47:00* Test Item Value Reference Range Interpretation Comme [facility] BLOOD SUGAR (test code = 161966) 128 mg/dL 65-99 A Lab Interpretation (test cod e = 80742-9) [facility] [id number] 00:00:00* Test Item Value Reference Range Interpretation Comme [facility] NUCLEATED RBCS (test code = 32250-8) 0.0 /100 WBC'S See_Comment [Automated messa ge] The system which generated this result transmitted reference range: 0.0 /100 WBC'S. The reference range was not used to interpret this result as normal/abnormal. ABSOLUTE EOSINOPHILS (test code = 33890-5) 0.50 K/UL See_Comment [Automated messa ge] The system which generated this result transmitted reference range: 0.00-0.50 K/UL. The reference range was not used to interpret this result as normal/abnormal. ABSOLUTE LYMPHOCYTES (test code = 66507-9) 1.58 K/UL See_Comment [Automated messa ge] The system which generated this result transmitted reference range: 1.00-4.00 K/UL. The reference range was not used to interpret this result as normal/abnormal. ABSOLUTE MONOCYTES (test code = 26153-7) 0.60 K/UL See_Comment [Automated messa ge] The system which generated this result transmitted reference range: 0.20-1.00 K/UL. The reference range was not used to interpret this result as normal/abnormal. ABSOLUTE NEUTROPHILS (test code = 04159-4) 3.38 K/UL See_Comment [Automated messa ge] The system which generated this result transmitted reference range: 1.50-7.50 K/UL. The reference range was not used to interpret this result as normal/abnormal. BASOPHILS (test code = 53777-9) 0.5 % EOSINOPHILS (test code = 88491-6) 8.2 % HEMATOCRIT (test code = 71413-3) 35.2 % See_Comment L [Automated messa ge] The system which generated this result transmitted reference range: 40.0-51.0 %. The reference range was not used to interpret this result as normal/abnormal. HEMOGLOBIN (test code = 718-7) 11.7 G/DL See_Comment L [Automated messa ge] The system which generated this result transmitted reference range: 13.5-17.0 G/DL. The reference range was not used to interpret this result as normal/abnormal. LYMPHOCYTES (test code = 81403-1) 25.9 % MCH (test code = 55241-7) 31.1 PG See_Comment [Automated messa ge] The system which generated this result transmitted reference range: 25.0-33.0 PG. The reference range was not used to interpret this result as normal/abnormal. MCHC (test code = 14798-6) 33.2 G/DL See_Comment [Automated messa ge] The system which generated this result transmitted reference range: 31.0-36.0 G/DL. The reference range was not used to interpret this result as normal/abnormal. MCV (test code = 73486-2) 93.6 fL See_Comment [Automated messa ge] The system which generated this result transmitted reference range: 80.0-99.0 fL. The reference range was not used to interpret this result as normal/abnormal. MONOCYTES (test code = 23056-9) 9.8 % NEUTROPHILS (test code = 98695-0) 55.4 % PLATELET COUNT (test code = 80364-4) 162 K/UL See_Comment [Automated messa ge] The system which generated this result transmitted reference range: 130-400 K/UL. The reference range was not used to interpret this result as normal/abnormal. RBC (test code = 44564-6) 3.76 M/UL See_Comment L [Automated messa ge] The system which generated this result transmitted reference range: 4.50-6.10 M/UL. The reference range was not used to interpret this result as normal/abnormal. RDW (test code = 04471-8) 12.5 % See_Comment [[employer]ated [employer]] The system which generated this result transmitted reference range: 11.5-15.0 %. The reference range was not used to interpret this result as normal/abnormal. WBC (test code = 27039-1) 6.1 K/UL See_Comment [Automated [employer]] The system which generated this result transmitted reference range: 3.5-11.0 K/UL. The reference range was not used to interpret this result as normal/abnormal.
[2024-10-08] MEDS ORDERED: LIDOCAINE 1% 20 ML MDV ONE (12:16)
[2024-10-08] MEDS ORDERED: TDAP (DIPHTH,PERTUSS(ACELL),TET VAC) 0.5 ML VIAL IMVAC ONE (12:17)
--- NOTE | 2024-10-08 12:45 | RAD REPORT ---
EXAM: CT brain without contrast HISTORY: TRAUMA COMPARISON: None TECHNIQUE: Multiple contiguous axial images were obtained and a CT of the brain without contrast. Sag ittal and coronal reformats were performed. One or more of the following dose reduction techniques were used: Automated exposure control, adjust ment of the mA and/or kV according to patient size, and/or iterative reconstruction. FINDINGS: No evidence of hydrocephalus, intracranial hemorrhage, or extra-axial fluid collection. The brain is normal in morphology. No evidence of midline shift or areas of brain edema. The calvarium is intact. The visualized paranasal sinuses and mastoid air cells are essentially clear . IMPRESSION: No evidence of acute intracranial abnormality. EXAM: CT of the cervical spine without contrast HISTORY: Neck pain, injury TRAUMA TECHNIQUE: Multiple contiguous axial images were obtained in a CT of the cervical spine without contr ast. Sagittal and coronal reformats were performed. FINDINGS: The vertebral bodies demonstrate normal height and alignment. No evidence of acute fracture or subluxation.. No degenerative changes are present. No prevertebral soft tissue swelling is seen. The posterior facets are well aligned. Normal alignment of the skull base with the cervical spine is seen. Bilateral carotid atherosclerosis. Calcified granuloma left apex. IMPRESSION: No evidence of acute osseous abnormality of the cervical spine.
--- NOTE | 2024-10-08 13:03 | RAD REPORT ---
EXAMINATION: XR RIGHT SHOUDLER CLINICAL INDICATION: Male, 84 years old. PAIN RIGHT TECHNIQUE: Multiple views of the right shoulder were obtained. COMPARISON: No prior exam. FINDINGS: Mild diffuse osteopenia. Mild AC joint degenerative changes. No acute fracture, dislocation .
--- NOTE | 2024-10-08 13:03 | RAD REPORT ---
EXAM: XR RIGHT HAND HISTORY: Pain. PAIN COMPARISON: None TECHNIQUE: Multiple projections of the right hand submitted. FINDINGS: Mild diffuse osteopenia. Mild radiocarpal joint arthritic changes. Vascular atherosclerosis . No acute fracture or dislocation..
--- NOTE | 2024-10-08 14:58 | EDPHYS ---
Physician Documentation [facility] Name: Deonte Hernandez Age: 84 yrs Sex: Male : 1940 Arrival Date: 10/08/2024 Time: 11:51 Bed 14 Private MD: ED Physician Gallo Rosado HPI: 10/08 16:16 This 84 yrs old Male presents to ER via Ambulatory with complaints of Fall Injury. rt 16:16 Patient presents to the ED following mechanical fall. The patient was walking his dog, rt got pulled down stairs hitting his face causing laceration. Also hit his right hand causing a laceration to the fourth digit. Denies other acute complaints at this time including loss of consciousness, symptoms are moderate in severity, no other aggravating or alleviating factors.. Historical: - Allergies: 12:02 No Known Allergies; hb - Immunization history:: Adult Immunizations up to date. - Infectious Disease History:: Denies. - Immunization history: Last tetanus immunization: unknown. - Social history:: Smoking status: Patient denies any tobacco usage or history of. - Family history:: not pertinent. ROS: 16:16 Constitutional: Negative for fever, chills, and weight loss, Neck: Negative for injury, rt pain, and swelling, Cardiovascular: Negative for chest pain, palpitations, and edema, Respiratory: Negative for shortness of breath, cough, wheezing, and pleuritic chest pain, Abdomen/GI: Negative for abdominal pain, nausea, vomiting, diarrhea, and constipation, 16:16 Skin: Positive for laceration(s), Exam: 16:16 Constitutional: This is a well developed, well nourished patient who is awake, alert, rt and in no acute distress. Neck: Trachea midline, no thyromegaly or masses palpated, and no cervical lymphadenopathy. Supple, full range of motion without nuchal rigidity, or vertebral point tenderness. No Meningismus. Chest/axilla: Normal chest wall appearance and motion. Nontender with no deformity. No lesions are appreciated. Cardiovascular: Regular rate and rhythm with a normal S1 and S2. No gallops, murmurs, or rubs. Normal PMI, no JVD. No pulse deficits. Respiratory: Lungs have equal breath sounds bilaterally, clear to auscultation and percussion. No rales, rhonchi or wheezes noted. No increased work of breathing, no retractions or nasal flaring. Abdomen/GI: Soft, non-tender, with normal bowel sounds. No distension or tympany. No guarding or rebound. No evidence of tenderness throughout. 16:16 Head/face: There are 3 lacerations to the face, 1 at the eyebrow of about 5 cm, to above the eyebrow, one of them is 1 cm, the other is 3 cm.. 16:16 Musculoskeletal/extremity: Abrasion with about a 2 cm laceration to the right fourth finger, good capillary refill, good pipe fitter ammonia strength, pulses, motor, sensation intact. Vital Signs: 12:00 BP 126 / 57; Pulse 52; Resp 16; Temp 98.1(O); Pulse Ox 99% on R/A; Weight 97.52 kg; hb Height 5 ft. 9 in. ; Pain 5/10; 13:00 BP 132 / 58; Pulse 54; Resp 18; Pulse Ox 98% on R/A; ph 14:00 BP 140 / 62; Pulse 55; Resp 16; Pulse Ox 99% on R/A; ph 15:10 BP 138 / 64; Pulse 54; Resp 18; Temp 97.2; Pulse Ox 98% on R/A; ph 12:00 Body Mass Index 31.75 (97.52 kg, 175.26 cm) hb 12:00 Pain Scale: Adult hb Brownwood Coma Score: 12:30 Eye Response: spontaneous(4). Motor Response: obeys commands(6). Verbal Response: ph oriented(5). Total: 15. 13:00 Eye Response: spontaneous(4). Motor Response: obeys commands(6). Verbal Response: ph oriented(5). Total: 15. 14:00 Eye Response: spontaneous(4). Motor Response: obeys commands(6). Verbal Response: ph oriented(5). Total: 15. Trauma Score (Adult): 12:03 Eye Response: spontaneous(1); Verbal Response: oriented(1); Motor Response: obeys hb commands(2); Systolic BP: > 89 mm Hg(4); Respiratory Rate: 10 to 29 per min(4); Brownwood Score: 15; Trauma Score: 12 13:00 Eye Response: spontaneous(1); Verbal Response: oriented(1); Motor Response: obeys ph commands(2); Systolic BP: > 89 mm Hg(4); Respiratory Rate: 10 to 29 per min(4); Brownwood Score: 15; Trauma Score: 12 14:00 Eye Response: spontaneous(1); Verbal Response: oriented(1); Motor Response: obeys ph commands(2); Systolic BP: > 89 mm Hg(4); Respiratory Rate: 10 to 29 per min(4); Mariely Score: 15; Trauma Score: 12 Laceration: 16:16 Wound Repair of 3cm ( 1.2in ) subcutaneous laceration to dorsal aspect of proximal rt phalanx of right ring finger. Linear shaped.. Distal neuro/vascular/tendon intact. Anesthesia: Digital block administered with 2 mls of 1% lidocaine. Wound prep: Copious irrigation. Skin closed with 3 4-0 Prolene using simple sutures and sterile technique. Dressed with 4x4's. Patient tolerated well. 16:16 Wound Repair of 8cm ( 3.1in ) subcutaneous laceration to face. Linear shaped.. Distal rt neuro/vascular/tendon intact. Anesthesia: Wound infiltrated with 3 mls of 1% lidocaine. Wound prep: Copious irrigation. Skin closed with 14 4-0 Prolene using simple sutures and sterile technique. Dressed with 4x4's. Patient tolerated well. MDM: 12:00 Medical Screening Exam initiated rt 16:16 Differential diagnosis: closed head injury, fracture, laceration. Data reviewed: vital rt signs, nurses notes. I considered the following discharge prescriptions or medication management in the emergency department Medications were administered in the Emergency Department. See MAR. Independent interpretation of the following test(s) in the Emergency Department CT Scan: My interpretation is No intracranial hemorrhage seen on interpretation of CT scan images. Test considered but Not performed: Other Details Denies syncopal symptoms, EKG, labs are not indicated. Counseling: I had a detailed discussion with the patient and/or guardian regarding the historical points, exam findings, and any diagnostic results supporting the discharge/admit diagnosis, radiology results, the need for outpatient follow up, to return to the emergency department if symptoms worsen or persist or if there are any questions or concerns that arise at home. Response to treatment: the patient's symptoms have markedly improved after treatment. 10/08 12:10 Order name: Hand Right 3 View XRAY; Complete Time: 13:08 rt 10/08 12:10 Order name: Shoulder Right (2 View) XRAY; Complete Time: 13:08 rt 10/08 12:10 Order name: CT Head C Spine; Complete Time: 12:47 rt 10/08 12:10 Order name: Gloves, Sterile; Complete Time: 13:24 rt 10/08 12:10 Order name: Setup Suture Tray; Complete Time: 13:24 rt Administered Medications: 12:22 Drug: Boostrix Tdap IM 0.5 ml IM once; as a single dose Route: IM; Site: left deltoid; ph 14:35 Follow up: Response: No adverse reaction ph 14:33 Drug: Lidocaine Infiltration (1 %) 20 ml 20 ml Infiltration once; to bedside Volume: 20 ph ml; Route: Infiltration; 14:33 Follow up: Response: No adverse reaction ph Disposition Summary: 10/08/24 14:57 Discharge Ordered Notes: Location: Home rt Problem: new rt Symptoms: have improved rt Condition: Stable rt Diagnosis - Mechanical fall rt - Facial laceration rt - Laceration of right fourth finger rt Followup: rt - With: Private Physician - When: 7 - 10 days - Reason: Staple/Suture removal Discharge Instructions: - Discharge Summary Sheet rt - Fall Prevention in the Home, Adult rt - Laceration Care, Adult rt Forms: - Medication Reconciliation Form rt - Antibiotic Education rt - Prescription Opioid Use rt - Patient Portal Instructions rt - Leadership Thank You Letter rt Signatures: Dispatcher [employer] EDMuna Julian RN RN Christa Robertson RN RN Gallo Rosado MD MD rt Corrections: (The following items were deleted from the chart) 12:10 12:10 Hand Right 3 View+RAD.RAD.BRZ ordered. EDMS EDMS 12:11 12:11 Shoulder Right 2 View+RAD.RAD.BRZ ordered. EDMS EDMS 12:11 12:11 Head C Spine MPR Wo Con+CT.RAD.BRZ ordered. EDMS EDMS
--- NOTE | 2024-10-08 14:58 | ER ---
Nurse's Notes [facility] Name: Deonte Hernandez Age: 84 yrs Sex: Male : 1940 Arrival Date: 10/08/2024 Time: 11:51 Bed 14 Private MD: Diagnosis: Mechanical fall;Facial laceration;Laceration of right fourth finger Presentation: 10/08 12:00 Chief complaint: Tripped down 3 stairs and landed face first into brick. Laceration hb noted over right eyebrow, skin tear to right hand. Negative LOC. Takes unknown blood thinner. Coronavirus screen: At this time, the client does not indicate any symptoms associated with coronavirus-19. Ebola Screen: No symptoms or risks identified at this time. Initial Sepsis Screen: Does the patient meet any 2 criteria? No. Patient's initial sepsis screen is negative. Does the patient have a suspected source of infection? No. Patient's initial sepsis screen is negative. Risk Assessment: Do you want to hurt yourself or someone else? Patient reports no desire to harm self or others. Onset of symptoms was October 08, 2024. 12:00 Method Of Arrival: Ambulatory hb 12:00 Acuity: TOREY 2 hb 12:03 Care prior to arrival: None. Mechanism of Injury: Fall down 3 steps. Trauma event hb details: Injury occurred in the [facility], Injury occurred: at home. Injury occurred: October 08, 2024. Trauma Activation: Not Applicable Physician: ED Physician; Name: ; Notified At: ; Arrived At: Physician: General Surgeon; Name: ; Notified At: ; Arrived At: Physician: Radiology; Name: ; Notified At: ; Arrived At: Physician: Respiratory; Name: ; Notified At: ; Arrived At: Physician: Lab; Name: ; Notified At: ; Arrived At: Historical: - Allergies: 12:02 No Known Allergies; hb - Immunization history:: Adult Immunizations up to date. - Infectious Disease History:: Denies. - Immunization history: Last tetanus immunization: unknown. - Social history:: Smoking status: Patient denies any tobacco usage or history of. - Family history:: not pertinent. Screenin:03 Abuse screen: Denies threats or abuse. Denies injuries from another. Tuberculosis hb screening: No symptoms or risk factors identified. 12:04 [facility] ED Fall Risk Assessment (Adult) History of falling in the last 3 months, hb including since admission Yes- single mechanical fall (1 pt) Confusion or Disorientation No (0 pts) Intoxicated or Sedated No (0 pts) Impaired Gait No (0 pts) Mobility Assist Device Used No (0 pt) Altered Elimination No (0 pt) Score/Fall Risk Level 0 - 2 = Low Risk Oriented to surroundings, Maintained a safe environment, Educated pt \T\ family on fall prevention, incl call for assistance when getting out of bed. Nutritional screening: No deficits noted. Primary Survey: 12:03 NO uncontrolled hemorrhage observed. A: The client is awake and alert. The airway is hb patent. Breathing/Chest: Spontaneous respiratory effort, equal unlabored respirations, breath sounds clear bilaterally, regular pattern, symmetrical chest rise and fall. Circulation: No external hemorrhage present. Regular and strong central pulse, skin warm/dry/normal color. Disability Client is alert. Exposure/Environment: A warming method has been applied: A warm blanket has been provided to the patient. 15:09 Reassessment Alertness and Airway: Awake and alert. The airway is patent. Breathing: ph Spontaneous respiratory effort, equal unlabored respirations, breath sounds clear bilaterally, regular pattern with symmetrical chest rise and fall. Circulation: No external hemorrhage noted. Regular and strong central pulse, skin warm/dry/normal color. Disability: Pupils Pupils are equal, round, reactive to light and accomodation. Alert. Assessment: 12:30 General: Appears in no apparent distress. Behavior is calm, cooperative. Pain: ph Complains of pain in right side of forehead and right hand. Neuro: Level of Consciousness is awake, alert, obeys commands, Oriented to person, place, time, situation. Cardiovascular: Capillary refill < 3 seconds in bilateral fingers Patient's skin is warm and dry. Respiratory: Airway is patent Respiratory effort is even, unlabored, Respiratory pattern is regular, symmetrical. Derm: Skin is pink, warm \T\ dry. Musculoskeletal: Circulation, motion, and sensation intact. Range of motion: intact in all extremities. Injury Description: Laceration sustained to dorsal aspect of middle phalanx of right ring finger and dorsal aspect of proximal phalanx of right ring finger. Injury Description: Laceration sustained to right side of forehead. Injury Description: Abrasion sustained to right cheek. Vital Signs: 12:00 BP 126 / 57; Pulse 52; Resp 16; Temp 98.1(O); Pulse Ox 99% on R/A; Weight 97.52 kg; hb Height 5 ft. 9 in. ; Pain 5/10; 13:00 BP 132 / 58; Pulse 54; Resp 18; Pulse Ox 98% on R/A; ph 14:00 BP 140 / 62; Pulse 55; Resp 16; Pulse Ox 99% on R/A; ph 15:10 BP 138 / 64; Pulse 54; Resp 18; Temp 97.2; Pulse Ox 98% on R/A; ph 12:00 Body Mass Index 31.75 (97.52 kg, 175.26 cm) hb 12:00 Pain Scale: Adult hb Mariely Coma Score: 12:30 Eye Response: spontaneous(4). Motor Response: obeys commands(6). Verbal Response: ph oriented(5). Total: 15. 13:00 Eye Response: spontaneous(4). Motor Response: obeys commands(6). Verbal Response: ph oriented(5). Total: 15. 14:00 Eye Response: spontaneous(4). Motor Response: obeys commands(6). Verbal Response: ph oriented(5). Total: 15. Trauma Score (Adult): 12:03 Eye Response: spontaneous(1); Verbal Response: oriented(1); Motor Response: obeys hb commands(2); Systolic BP: > 89 mm Hg(4); Respiratory Rate: 10 to 29 per min(4); Mariely Score: 15; Trauma Score: 12 13:00 Eye Response: spontaneous(1); Verbal Response: oriented(1); Motor Response: obeys ph commands(2); Systolic BP: > 89 mm Hg(4); Respiratory Rate: 10 to 29 per min(4); Mariely Score: 15; Trauma Score: 12 14:00 Eye Response: spontaneous(1); Verbal Response: oriented(1); Motor Response: obeys ph commands(2); Systolic BP: > 89 mm Hg(4); Respiratory Rate: 10 to 29 per min(4); Mariely Score: 15; Trauma Score: 12 ED Course: 11:55 Patient arrived in ED. al6 11:56 Gallo Rosado MD is Attending Physician. rt 11:58 [place], Muna, RN is Primary Nurse. ph 12:02 Triage completed. hb 12:03 Patient has correct armband on for positive identification. hb 12:04 Arm band placed on. hb 12:04 Provided Education on: use of light. hb 12:04 Patient maintains SpO2 saturation greater than 95% on room air. hb 12:33 CT Head C Spine In Process Unspecified. EDMS 12:50 Hand Right 3 View XRAY In Process Unspecified. EDMS 12:51 Shoulder Right (2 View) XRAY In Process Unspecified. EDMS 14:20 Thermoregulation: warm blanket given to patient. ph 14:21 Assist provider with laceration repair on right side of forehead that was 2.5 cm. or ph less using sutures. Set up tray. Performed by Gallo Rosado MD Patient tolerated well. 14:35 Assist provider with laceration repair on dorsal aspect of proximal phalanx of right ph ring finger and dorsal aspect of middle phalanx of right ring finger that was 2.5 cm. or less using sutures. Set up tray. Performed by Gallo Rosado MD Patient tolerated well. 15:10 Patient did not have IV access during this emergency room visit. ph Administered Medications: 12:22 Drug: Boostrix Tdap IM 0.5 ml IM once; as a single dose Route: IM; Site: left deltoid; ph 14:35 Follow up: Response: No adverse reaction ph 14:33 Drug: Lidocaine Infiltration (1 %) 20 ml 20 ml Infiltration once; to bedside Volume: 20 ph ml; Route: Infiltration; 14:33 Follow up: Response: No adverse reaction ph Medication: 15:09 Vaccine Information Statement (VIS) provided today. Questions and/or concerns ph addressed. VIS edition date: March 01, 2021. Intake: 12:03 PO: 0ml; Total: 0ml. hb Outcome: 14:57 Discharge ordered by MD. rt 15:09 Discharged to home ambulatory, with significant other, ph 15:09 Condition: good 15:09 Discharge instructions given to patient, significant other, Instructed on discharge instructions, follow up and referral plans. wound care, Demonstrated understanding of instructions, follow-up care, wound care, 15:11 Patient left the ED. ph Signatures: Dispatcher [employer] EDMuna Julian RN RN ph Christa Robertson RN RN Gallo Rosado MD MD rt Cornell, Corinne al6
[2024-10-08 15:18] VITALS: BP 138/64; TEMP 97.2; O2SAT 98
== END 2024-10-08 15:11 | disposition home or self-care (01) ==
LOC: ER 11:51
DX: S01.81XA Laceration without foreign body of other part of head, initial encounter (principal); S61.214A Laceration without foreign body of right ring finger without damage to nail, initial encounter; W10.8XXA Fall (on) (from) other stairs and steps, initial encounter
CPT/HCPCS: 70450; 72125; 73130; 73030; 96372; 99284; 12002; 12015; J2003